=== PATIENT | male | born 1965 | race Caucasian/White ===

== ENCOUNTER 2021-06-13 06:53 | Day surgery (SDCO) | payer OTHER ==
[~2021-06-13] VITALS: Ht 185.4 cm; Wt 76.9 kg
[2021-06-13 08:17] LABS: BASOPHIL 0.1 % (0-2); EOSINOPHIL 0.3 & (0-5); HCT 47.9 % (42.0-52.0); HGB 16.4 g/dl (13.2-18.0); LYMPHOCYTE 7.5 % (15-48); MCH 29.8 pg (25.0-31.0); MCHC 34.2 g/dL (32.0-36.0); MCV 87.1 fL (78.0-100.0); MONOCYTE 9.3 % (0-12); MPV 10.8 fL (6.0-9.5); NEUTROPHIL 82.5 % (41-80); PLT 205 K/uL (150-400); RDW 11.4 % (11.5-14.0); WBC 7.07 K/uL (4.0-10.5)
[2021-06-13 08:36] LABS: ALBUMIN 2.8 g/dL (3.4-5.0); BILIRUBIN - TOTAL 0.6 mg/dL (0.2-1.0); BUN/CREAT RATIO (CALC) 15.8 RATIO; CREATININE 0.57 mg/dL (0.67-1.17); GLOBULIN (CALCULATION) 4.3 g/dL; POTASSIUM 3.6 mmol/L (3.5-5.1); TOTAL PROTEIN 7.1 g/dL (6.4-8.2)
[2021-06-13 08:47] LABS: LACTIC ACID 1.3 mmol/L (0.4-1.9)
[2021-06-14 07:11] LABS: BASOPHIL 0.2 % (0-2); HCT 47.2 % (42.0-52.0); MCH 30.2 pg (25.0-31.0); MCHC 33.9 g/dL (32.0-36.0); MCV 89.1 fL (78.0-100.0); MONOCYTE 5.9 % (0-12); MPV 10.6 fL (6.0-9.5); NEUTROPHIL 85.1 % (41-80); PLT 250 K/uL (150-400); RDW 11.6 % (11.5-14.0); WBC 5.47 K/uL (4.0-10.5)
[2021-06-14 07:12] LABS: LYMPHOCYTE 8.6 % (15-48)
[2021-06-14 07:57] LABS: BUN/CREAT RATIO (CALC) 12.7 RATIO; C-REACTIVE PROTEIN 7.3 mg/dL (<=0.90); CREATININE 0.63 mg/dL (0.67-1.17); POTASSIUM 4.6 mmol/L (3.5-5.1)
[2021-06-14] MEDS ORDERED: METFORMIN HCL500 MG PO (12:47)
[2021-06-14] MEDS ORDERED: LEVEMIR VI100 UNITS/ SC (12:48)
[2021-06-14] MEDS ORDERED: CEFDINIR300 MG PO (12:55)
[2021-06-14] MEDS ORDERED: AZITHROMYCIN250 MG PO (12:55)
== END 2021-06-14 15:15 | disposition home or self-care (01) ==
LOC: FER 06:53 → FMS 09:28
PROVIDERS: Internal Medicine; ADMIT Internal Medicine
DX: E11.9 Type 2 diabetes mellitus without complications (principal); U07.1 COVID-19; Z87.891 Personal history of nicotine dependence
CPT/HCPCS: 36415; 71045; 80048; 80053; 82009; 82728; 82962; 83036; 83605; 83690; 84484; 85025; 86140; 87040; 93005; 94010; C9399; G0378; J0456; J0696; J2270; J2405; J7030; J7050; J7120; J8540; U0002